=== PATIENT | male | born 1940 | race Caucasian/White ===

== ENCOUNTER 2018-01-13 08:40 | Inpatient (IN) | payer OTHER, SELFPAY ==
[2017-12-30 09:54] VITALS: BMI 23.9
--- NOTE | 2018-01-03 14:14 | CM.SWNOTE ---
Call from Dung Wright P # [phone]. Requesting info about pt's DC date (?). According to Registration notes; pt had a dummy date for surgery 12/31, actually date for knee surgery w/Dr De Leon is 01/13. Reg note indicates [facility] admissions already updated another member from [facility]Joyce Razo updated and auth in place starting 01/13. This STAFF RESPIRATORY THERAPIST unable to document in CollNotes in Registration. CM Personal Care Worker Reyna Huntley aware and email sent to admit change group. JW
[2018-01-13] VITALS (13 sets, daily range): BP systolic 85–175; BP diastolic 45–92; PULSE 54–66; RESP 11–18; TEMP 35.8–37.2; O2SAT 93–100; BMI 23.5
--- NOTE | 2018-01-13 | DI.RAD.S_ITS ---
PROCEDURE: XR KNEE RT 1TO2V INDICATIONS: KNEE TECHNIQUE: 2 view(s) of the knee acquired. COMPARISON: None. FINDINGS: Bones: Patient is status post knee joint arthroplasty. Hardware components are in expected positions. Visualized bony structures are intact. Soft tissues: Overlying postoperative changes are noted. IMPRESSION: Status post right total knee arthroplasty. Dictated by: Odalys Armas M.D. on 01/13/2018 at 13:39 Approved by: Odalys Armas M.D. on 01/13/2018 at 13:39
[2018-01-13] MEDS: LACTATED RINGERS 1,000 ML 42 ML IV ×2 (09:47→12:12)
[2018-01-13] MEDS: ACETAMINOPHEN 325 MG TABLET 975 MG PO ×2 (09:47→21:52)
[2018-01-13] MEDS: PREGABALIN 75 MG CAPSULE PO (09:48)
[2018-01-13] MEDS: CELECOXIB 200 MG CAPSULE PO (09:48)
[2018-01-13] MEDS: MIDAZOLAM 2 MG/2 ML VIAL IV (10:26)
[2018-01-13] MEDS: fentaNYL 100 MCG/2 ML INJ IV (10:26)
--- NOTE | 2018-01-13 10:46 | SUR.PREOP ---
50 mcg fentanyl iv verbal order dr leonardo
--- NOTE | 2018-01-13 10:49 | SUR.PREOP ---
Block start time []1033 . Monitoring initiated and maintained throughout procedure. Oxygen and medications given per anesthesiologist instructions. Patient remained stable throughout procedure, no adverse reactions noted. Block end time 1040 [].
[2018-01-13] MEDS: CEFAZOLIN 2 GM/100 ML FROZ.PIGGY IV ×2 (11:02→18:35)
--- NOTE | 2018-01-13 11:05 | PM.PREOP ---
Pre-operative Note Interval Note Pre-op Check: Yes History & Physical Reviewed by Physician and Yes Exam Performed Changes: No
--- NOTE | 2018-01-13 11:31 | SUR.OPER ---
Supine on padded OR bed. Pillow under head, arms secured on padded armboards <90 degree abduction. Safety belt across torso. Non-operative leg secured with tape over blanket over lower leg. Operative leg secured in DeMayo/Pierre positioner. Foam padded brace at thigh of operative leg.
[2018-01-13] MEDS: BUPIVACAINE 0.25% W/ EPI VIAL 50 ML INJ (11:37)
[2018-01-13] MEDS: TRANEXAMIC ACID 1,000 MG VIAL 1000 MG INJ ×2 (11:37→12:17)
[2018-01-13] MEDS: BUPIVACAINE LIPOSOME 266 MG/20 ML VIAL INJ (11:38)
[2018-01-13] MEDS: MORPHINE 4 MG/ML INJ INJ (11:43)
--- NOTE | 2018-01-13 12:45 | P.OP_ITS ---
Operative Date/Time/Diagnoses Date of procedure: 01/13/18 Time of procedure: 12:30 Post-op diagnosis: same Procedure & Clinicians Procedure: Right total knee replacement Same procedure as scheduled: Yes Indications: The patient has had progressively worsening right knee pain with radiographic changes consistent with arthritis. Non-operative management has failed and the patient has requested total knee replacement. The risks, benefits and alternatives to surgery were discussed with the patient prior to proceeding. Risks discussed included, but were not limited to, failure to relieve pain, stiffness, infection, nerve damage, deep venous thrombosis, pulmonary embolism, stroke, coma, heart attack, permanent paralysis and , as well as the potential need for eventual revision of the prosthetic. Surgeon: Paulo De Leon Automotive Technician Instructor: Norma Love Click Yes if Unassisted: No Anesthesia Type: Spinal, Sedation, Peripheral nerve block and Local Operative Notes Findings: Severe medial and moderate patellofemoral osteoarthritis. The patient had eroded his medial tibial and femoral bone. Closure Type: primary Specimen(s): none sent Implants & Drains: Implants used in this procedure were manufactured by the [employer] and [employer] and included the BCS II Journey total knee replacement with a size 8 right cobalt chromium femur, a size 8 right non porous tibial base plate, a 10 mm crosslinked polyethylene BCS II tibial insert and a 38 mm oval Maria Fernanda II patella. Applied: implant(s) Estimated Blood Loss (mL): 25 Blood products transfused: none Tourniquet time (min): 53 Procedure in detail: The patient was seen in the pre-operative area, where the patient identified the right knee as the operative site and this was marked with my initials. The patient received pre-operative antibiotics, and was taken to the operating room and placed on the operative table in the supine position. After satisfactory anesthesia, a java jsf developer out was performed. The right leg was encircled with a tourniquet about the proximal thigh, and the leg was prepared from the toes to the tourniquet with ChloroPrep in the usual fashion and draped through sterile drapes. The leg was elevated and exsanguinated with Eschmark bandage and the tourniquet inflated to 250 mmHg pressure. The knee was approached through an approximately 18 cm incision centered over the patella and carried into the knee through a medial parapatellar arthrotomy. The anterior osteophytes and soft tissues were removed. The rotational landmarks of Hamilton's line and the transepicondylar axis were marked on the femur with electrocautery, and intramedullary guide holes for the femur and tibia were created. The distal femoral cut was made in 6 degrees of valgus using the intramedullary guide at the primary cut setting. The proximal tibial cut was then made using the intramedullary guide, taking 9 mm of bone off the less involved side. The extension gap was checked and the rotation of the femoral component confirmed with the gap balancing system. The anterior, posterior and chamfer cuts were then made. The posterior osteophytes and soft tissues were then removed. The posterior capsule was injected with part of a mixture of 50 ml 0.25% Marcaine mixed with 20 ml Exparel and 4 mg of morphine for post-operative pain control. The remainder of this mixture was injected into the capsule and subcutaneous tissues during cement curing. The tibia was prepared with the rotation set by an extra medullary guide. Trial tibial and femoral components were then placed and the intercondylar notch cut through the femoral trial. Range of motion was 0-135 degrees, with good stability throughout the range. The patella was then cut to accommodate the patellar prosthetic. There was no need for a lateral release. The trials were then removed, and the femoral hole plugged with a bone plug. The bone was prepared with pulsatile lavage, and dried with a sponge. Cement was applied and the final prosthetics placed. Excess cement was removed during and after cement curing. After confirming there was no extruded cement posteriorly, the final tibial insert was placed. The knee was copiously irrigated and the tourniquet deflated. Hemostasis was obtained. The capsule was closed with interrupted # 2 polyester suture. The subcutaneous layer was closed with 3-0 Vicryl, and the skin with a running 3-0 V-Lock suture and SteriStrips. An Aquacel Ag dressing was applied and the patient was taken to recovery having tolerated the procedure well. Complications: none Condition: stable Disposition: PACU Plan for aftercare: The patient will be maintained on a standard total knee replacement protocol with weight bearing as tolerated. The patient will receive aspirin and sequential compression devices for DVT prophylaxis. The patient will be discharged home when safe for the home environment.
[2018-01-13] MEDS: fentaNYL 100 MCG/2 ML INJ 50 MCG IV ×2 (13:01→13:08)
--- NOTE | 2018-01-13 13:13 | SUR.PHASEI ---
Report called to MELINA Brice.
--- NOTE | 2018-01-13 13:34 | SUR.PHASEI ---
Pt transferred to the floor, Report to [employer]. VS stable. IV saline locked. Bed alarm on due to pt's impulsiveness. Alanisg cdi. Pt moving RLE independently.
[2018-01-13] MEDS: OXYCODONE IR 5 MG TABLET PO ×5 (13:45→23:37)
[2018-01-13] MEDS: LACTATED RINGERS 1,000 ML 125 ML IV ×2 (14:16→23:37)
--- NOTE | 2018-01-13 15:26 | PC.ADMIT ---
Admission Note: Pt arrived to 224 at 1300 from PACU. Very restless and moving right knee constantly in bed, reporting it just aches. Medicated wtih oxycodone after pt took in crackers and water. Denies nausea. CMS intact to BLEs. BRE wrap C/D/I to right knee. Orietned to room and to bed/tv/call light controls. Impulsive, does not call before getting out of bed. Bed alarm is on. Belongings at bedside. The patient,Prabhjot Crow,77 y/o, was given written information regarding hospital policies, unit procedures and contact persons. Patient's smoking status: Current every day smoker. Vital Signs - 8 hr 01/13/18 09:36 01/13/18 12:42 01/13/18 12:45 Temperature 97.3 F L 99.0 F Pulse Rate 55 L 66 66 Respiratory Rate 16 15 Blood Pressure 153/79 H 87/47 L 85/45 L Pulse Oximetry 100 96 01/13/18 12:47 01/13/18 12:54 01/13/18 12:57 Temperature Pulse Rate 66 63 62 Respiratory Rate 17 11 L 16 Blood Pressure 94/52 L 96/57 L 103/53 L Pulse Oximetry 96 96 96 01/13/18 13:13 01/13/18 13:31 01/13/18 14:23 Temperature 97.6 F 97.1 F L 96.9 F L Pulse Rate 56 L 57 L 59 L Respiratory Rate 15 18 18 Blood Pressure 125/70 H 143/65 H 147/75 H Pulse Oximetry 94 95 99 01/13/18 14:38 Temperature 96.5 F L Pulse Rate 54 L Respiratory Rate 16 Blood Pressure 175/91 H Pulse Oximetry 99
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
[2018-01-13] MEDS: DOCUSATE 100 MG CAPSULE PO (21:53)
[2018-01-13] MEDS: ASPIRIN EC 81 MG TABLET PO (21:53)
[2018-01-14] MEDS: CEFAZOLIN 2 GM/100 ML FROZ.PIGGY IV (02:45)
[2018-01-14 02:51] VITALS: BP 149/80; PULSE 67; RESP 18; TEMP 36.8; O2SAT 96
--- NOTE | 2018-01-14 03:41 | PC.NURSE ---
Warehouse Clerk- Pt OOB to BR X2 to void qs. Ambulated with SBA using walker, slow movement. Instructed pt on pain management and post op knee precautions. Oxycodone po prn given at 2340 for 3/10 aching to top of right knee. Effective in pain management. Ice on/off throughout shift and pt states helps. PPP, CMS+, right knee aquacel AG dressing CDI and covered with ralph wrap. IVF infusing well to left hand PIV. No other voiced concerns.
[2018-01-14 05:09] LABS: Hematocrit 38.9 % (41-53); Hemoglobin 13.1 g/dL (13.5-17.5)
[2018-01-14] MEDS: OXYCODONE IR 5 MG TABLET PO ×5 (05:47→20:57)
[2018-01-14 07:30] VITALS: BP 156/77; PULSE 66; RESP 15; TEMP 36.8; O2SAT 95
--- NOTE | 2018-01-14 07:49 | PM.DS.1 ---
History of Present Illness Date Patient Seen: 01/14/18 Time Patient Seen: 07:40 Chief complaint: [place] [id number] Narrative: History of present illness and physical exam is contained in the chart in a previously completed note. Please refer to that note for this information. Discharge Providers Date of admission: 01/13/18 08:40 Consults: 01/13/18 13:28 Consult to Discharge Planning Routine Comment: Consult to Physical Therapy Evaluate & Treat Comment: Physician Instructions: postop TKA protocol 01/13/18 14:07 Consult to Respiratory Therapy Evaluate & Treat Comment: Physician Instructions: Evaluate and treat Discharge provider: Paulo De Leon MD Discharge Date: 01/14/18 Summary Discharge Diagnosis: 1. Right knee osteoarthritis 2. Mild post hemorrhagic anemia Hospital Course: The patient was admitted to the hospital and taken directly to the operating room on January 13, 2018. He underwent a right total knee replacement without complications. He made good initial progress with physical therapy however was somewhat impulsive. He has had reasonably good pain control overall and at the time of this dictation the plan is for a ventral discharge today after additional physical therapy. Status at Discharge Cognitive/behavioral status at discharge: Baseline Functional status at discharge: uses cane/walker Overall status at discharge: patient is progressing back to baseline Time Spent with Patient Less than 30 minutes Exam Vital Signs (past 8 hours): - 01/14/18 02:51 Temperature 98.3 F Pulse Rate 67 Respiratory Rate 18 Blood Pressure 149/80 H Pulse Oximetry 96 Oxygen Delivery Method Room Air Oxygen Flow Rate 0 Narrative Exam Narrative: On physical examination the right lower extremity wound is dressed with no drainage on the bandage. Calf is soft. Light touch and motion are intact in the right lower extremity. Objective Labs Result Diagrams: 01/14/18 04:57 Labs: Laboratory Results - last 24 hr 01/14/18 04:57 Hgb 13.1 L Hct 38.9 L Radiographs reveal an appropriately positioned total knee prosthesis. Discharge Plan Discharge Plan Patient Disposition: Home, Self-Care Discharge Med Rec/Prescriptions Prescriptions: New acetaminophen 325 mg Tablet 975 mg PO TID 30 Days Qty: 270 RF: 0 aspirin 81 mg Tablet,Delayed Release (Dr/Ec) 81 mg PO BID 42 Days Qty: 84 RF: 0 ibuprofen 600 mg Tablet 600 mg PO Q6HR PRN (Reason: As Needed For Fever/Mild Pain) 30 Days RF: 0 oxycodone 5 mg Tablet 5 mg PO Q3HR PRN (Reason: Pain, Moderate (4-6)) Qty: 60 RF: 0 Continue vitamin B complex Tablet 1 tab PO DAILY RF: 0 hydrochlorothiazide 25 mg Tablet 25 mg PO DAILY RF: 0 zinc 50 mg Tablet 50 mg PO DAILY RF: 0 Follow up/Referrals: Paulo De Leon MD [Physician] - 3-5 Days Provider Discharge Instructions Diet: Diet as Tolerated Activity: May walk as tolerated on right leg. It is best to be up 10 minutes an hour every hour while awake rather than stay up for 2 hours and then rest 22. Cold/Heat Therapy: Ice through bandage as needed. If ice touches skin, remove it after 15 minutes. Wound Care Report to your healthcare provider any signs of infection, such as:: chills, fever, night sweats, increased pain and unusual drainage Dressing: You may remove the BRE wrap on , January 16 and shower with the deeper dressing in place. Other wound treatment: Contact the office if the central strip of the deeper dressing is saturated with blood or water. Discharge Data Attending Provider: Paulo De Leon Admit Date/Time: 01/13/18 08:40 Quality VTE Deep Vein Thrombosis/Pulmonary Embolism Present on Admission: No
[2018-01-14] MEDS: hydroCHLOROthiazide 25 MG TABLET PO (08:17)
[2018-01-14] MEDS: ACETAMINOPHEN 325 MG TABLET 975 MG PO ×3 (08:18→20:45)
[2018-01-14] MEDS: DOCUSATE 100 MG CAPSULE PO ×2 (08:18→20:45)
[2018-01-14] MEDS: ASPIRIN EC 81 MG TABLET PO ×2 (08:19→20:57)
--- NOTE | 2018-01-14 12:10 | PT.IPTN ---
Current Diagnoses Unilateral primary osteoarthritis, right knee (01/13/18) Surgery Performed Operation Date: 01/13/18 10:45 Actual Procedures p Total Knee Arthroplasty(Right) - Paulo De Leon MD Physical Therapy Treatment Note M2 PT-IP Current Condition Start: 01/13/18 16:14 Freq: NEEDED Status: Active Protocol: Document 01/13/18 15:34 MDD (Rec: 01/13/18 16:24 MDD [id number]) Physical Therapy Current Condition Current Condition Evaluation Date 01/13/18 Treatment Diagnosis s/p R TKA Onset Date 01/13/18 Weight Bearing Status Weight Bearing Status Weight Bear as Tolerated M3 PT-IP Subjective Start: 01/13/18 16:14 Freq: NEEDED Status: Active Protocol: Document 01/14/18 12:10 MDD (Rec: 01/14/18 12:57 MDD [id number]) Subjective Physical Therapy Visit Type Type Treatment Note Visit Start Time 11:39 Visit Stop Time 12:10 Total Visit Minutes 31 Number of FISHING GAME WARDEN Visits 0 Physical Therapy Visit Comments Patient Comments Pt agreeable to participate with therapy this day. Does report having severe pain in R knee when he moves. States he would like to stay in the hospital one more night. Therapy Pain Assessment Pain When Pain Assessed During Mobility Pain Present Pain Present Pain Reported Location Right knee Intensity 10 Scale Used Numeric (1 - 10) Description Aching Pain Behaviors Calling Out Guarding Holding Area Moaning Wincing Pain Management Techniques Timing of Activity with Medications M4 PT-IP Mobility and Gait Start: 01/13/18 16:14 Freq: NEEDED Status: Active Protocol: Document 01/13/18 15:34 MDD (Rec: 01/13/18 16:24 MDD [id number]) PT-Bed Mobility Assessment Rolling Level of Assist Independent Supine to Sit Supine to Sit Independent Sit to Supine Sit to Supine Independent Scooting Scooting to Edge of Bed Independent Scooting Up and Down in Bed Independent PT-Transfer Assessment Sit to and From Stand Sit to and from Stand Standby Assistance Equipment Transfer Assistive Device Gait Belt Front Wheeled Walker Gait Assessment Gait Gait Assistance Required: Standby Assistance Distance (Feet) (feet) 50 Assistive Devices Assistive Device Gait Belt Front Wheeled Walker Gait Deviations General Gait Pattern Antalgic Step-to Gait Wide Based Gait Comments Gait Comments Pt very impulsive with movements, at one point picks up the walker and carries it 5 feet. PT-Balance Assessment Sitting Balance and Reactions Static Sitting Balance Ability Normal Dynamic Sitting Balance Ability Normal Standing Balance and Reactions Static Standing Balance Ability Good Dynamic Standing Balance Ability Good M5 PT-IP Objective Assessments Start: 01/13/18 16:14 Freq: NEEDED Status: Active Protocol: Document 01/13/18 15:34 MDD (Rec: 01/13/18 16:24 MDD [id number]) Orientation Orientation/Cognition Level of Alertness Alert Orientation Name Age Birthday Month Date Year Day of Week Place Situation Language Function Ability No Deficits Noted Safety Awareness Decreased Safety Awareness Memory Description No Deficits Noted Comments Pt impulsive throughout session, often swearing due to pain. Stood up without assist. Bed alarm left on. Gross Range of Motion Lower Extremity ROM Assessment Within Functional Limits Strength Lower Extremity Strength Assessment Within Functional Limits Coordination Assessment Gross Coordination Gross Coordination WNL Sensation Assessment Sensation Gross Sensation WNL M6 PT-IP Treatment Start: 01/13/18 16:14 Freq: NEEDED Status: Active Protocol: Document 01/14/18 12:10 MDD (Rec: 01/14/18 12:57 [facility] [id number]) Physical Therapy Treatment Education Education Provided Weight Bearing Status Safety Other Treatments Other Treatment Performed Pt required min A to move R LE during supine <> sit transfers today due to pain. Ambulated 10 feet and then an additional 57 feet with CGA and FWW with increasingly antalgic pattern. Pt was able to ascend/descend 3 steps using B handrails and CGA, but appeared unsteady. M7 PT-IP Assessment and Plan Start: 01/13/18 16:14 Freq: NEEDED Status: Active Protocol: Document 01/14/18 12:10 MDD (Rec: 01/14/18 12:57 [facility] [id number]) PT Summary Assessment and Plan Potential Rehabilitation Potential Good Status of Condition at Evaluation Stable Summary Impairments Pain ROM Bed Mobility Gait Progress Towards Goals Slow Progress due to Pain Assessment Summary Pt demonstrates greater impairments in bed mobility and gait this day due to high complaints of pain. Nursing had pre-medicated him well before treatment session. Should continue to benefit from additional guidance with PT and caregiver training. Pt reports he can have his sister come tomorrow, but doesn't think she can make it this afternoon. Goals Bed Mobility Goal Independent Transfer Goal Independent Gait Goal Independent Gait Distance 150 with FWW Other Goals Ascend/descend 2 steps with B hand rails. Days to Meet Goals 2 Frequency of Treatment Frequency Of Treatment Twice a Day Treatment Plan Physical Therapy Treatment Plan Gait Training Other Recommendations and Next Treatment Stair training, review HEP, Focus caregiver training Recommendations To Nursing Amount of Assist Needed Standby Assistance Discharge Recommendations PT Discharge Recommendations Home with Assistance
[2018-01-14] MEDS: IBUPROFEN 600 MG TABLET PO (12:28)
[2018-01-14 12:59] VITALS: BP 160/83; PULSE 62; RESP 16; TEMP 36.3; O2SAT 97
--- NOTE | 2018-01-14 13:51 | PC.NURSE ---
patient reports that he doesn't feel ready to go home today. Patient states that Dr. De Leon told him he could stay another day if he wanted. Nubia Alvares notified that patient feels he is not ready to go related to pain management and mobility needs. Order to hold discharge received. Will continue to follow. Patient medicated and assisted to get comfortable in bed, and requests to sleep for awhile. call light withinr each
[2018-01-14 15:52] VITALS: BP 150/76; PULSE 60; RESP 17; O2SAT 93
[2018-01-14 19:30] VITALS: BP 140/68; PULSE 62; RESP 18; TEMP 36.3; O2SAT 97
[2018-01-14] MEDS: SODIUM CHLORIDE 0.9% FLUSH 10 ML IV (20:57)
--- NOTE | 2018-01-14 21:55 | PC.NURSE ---
SHIFT NOTE Ox3 although forgetful at times. pt found getting OOB without assist, pt educated on safety which he was initially reluctant to comply with. pt denies any pain but still requesting PRN oxycodone. frequent visual checks. bed alarm fro safety. call light within reach.
[2018-01-15 00:10] VITALS: BP 133/64; PULSE 62; RESP 16; TEMP 36.7; O2SAT 95
[2018-01-15 05:52] VITALS: BP 162/68; PULSE 67; RESP 16; TEMP 36.5; O2SAT 98
[2018-01-15] MEDS: OXYCODONE IR 5 MG TABLET PO ×2 (06:00→10:46)
--- NOTE | 2018-01-15 07:38 | PC.NURSE ---
Assumed care of pt from outgoing shift. Pt asleep at this time. Pt bed alarm on. side rails upx3 belongings and call light within reach. will continue to monitor. 0130- Pt awake, denied pain, denied need for pain pill. assessment completed and charted. pt compliant. will continue to monitor. 0600- pt called complaining of pain, pain med given per AUG.
--- NOTE | 2018-01-15 07:43 | PM.PNPO.1 ---
Subjective Date Patient Seen: 01/15/18 Time Patient Seen: 07:44 Interval history: Patient notes his pain is moderate. Denies fever chills. No nausea vomiting. Patient stayed overnight due to patient being uncomfortable go home. Patient felt like he needed more physical therapy prior to discharge. Patient does have assistance at home. Patient was able to ambulate yesterday evening and actually was able do some stairs with assistance. Exam Vital Signs (past 8 hours): - 01/15/18 00:10 01/15/18 05:52 Temperature 98.1 F 97.7 F Pulse Rate 62 67 Respiratory Rate 16 16 Blood Pressure 133/64 H 162/68 H Pulse Oximetry 95 98 Oxygen Delivery Method Room Air Oxygen Flow Rate 0 Narrative Exam Narrative: 77-year-old male resting comfortably in bed in no apparent distress. Right knee dressing is clean, dry and intact. Calf is soft and nontender. Right lower extremity is warm and dry. Sensation grossly intact to light touch. Motor functions intact distal right lower extremity. Objective Labs Result Diagrams: 01/14/18 04:57 Assessment & Plan Post-op Postoperative Procedures Operation Date: 01/13/18 10:45 Actual Procedures Side Surgeon p Total Knee Arthroplasty Right Paulo De Leon MD Patient progressing as expected status post right total knee arthroplasty. Patient will continue to follow [facility] protocol. Oxycodone prescription provided. He will be on aspirin 81 mg b.i.d.. Tylenol 1000 mg t.i.d.. Anti-inflammatories as prescribed. He will start outpatient physical therapy. Follow-up scheduled [facility] in 5-7 days. Time Spent With Patient less than 15 minutes Quality VTE Deep Vein Thrombosis/Pulmonary Embolism Present on Admission: No
--- NOTE | 2018-01-15 07:47 | P.PN_ITS ---
Subjective Date Patient Seen: 01/15/18 Time Patient Seen: 07:44 Interval history: Patient notes his pain is moderate. Denies fever chills. No nausea vomiting. Patient stayed overnight due to patient being uncomfortable go home. Patient felt like he needed more physical therapy prior to discharge. Patient does have assistance at home. Patient was able to ambulate yesterday evening and actually was able do some stairs with assistance. Exam Vital Signs (past 8 hours): - 01/15/18 00:10 01/15/18 05:52 Temperature 98.1 F 97.7 F Pulse Rate 62 67 Respiratory Rate 16 16 Blood Pressure 133/64 H 162/68 H Pulse Oximetry 95 98 Oxygen Delivery Method Room Air Oxygen Flow Rate 0 Narrative Exam Narrative: 77-year-old male resting comfortably in bed in no apparent distress. Right knee dressing is clean, dry and intact. Calf is soft and nontender. Right lower extremity is warm and dry. Sensation grossly intact to light touch. Motor functions intact distal right lower extremity. Objective Labs Result Diagrams: 01/14/18 04:57 Assessment & Plan Post-op Postoperative Procedures Operation Date: 01/13/18 10:45 Actual Procedures Side Surgeon p Total Knee Arthroplasty Right Paulo De Leon MD Patient progressing as expected status post right total knee arthroplasty. Patient will continue to follow [facility] protocol. Oxycodone prescription provided. He will be on aspirin 81 mg b.i.d.. Tylenol 1000 mg t.i.d.. Anti- inflammatories as prescribed. He will start outpatient physical therapy. Follow-up scheduled [facility] in 5-7 days. Time Spent With Patient less than 15 minutes Quality VTE Deep Vein Thrombosis/Pulmonary Embolism Present on Admission: No
[2018-01-15 07:59] VITALS: BP 153/80; PULSE 70; RESP 16; TEMP 37.4; O2SAT 95
[2018-01-15] MEDS: ACETAMINOPHEN 325 MG TABLET 975 MG PO (08:07)
--- NOTE | 2018-01-15 10:23 | PC.NURSE ---
Am medications late, as they were not sent by pharmacy. Pharmacy has been notified and waiting for them at this time.
[2018-01-15] MEDS: ASPIRIN EC 81 MG TABLET PO (10:41)
[2018-01-15] MEDS: DOCUSATE 100 MG CAPSULE PO (10:41)
[2018-01-15] MEDS: hydroCHLOROthiazide 25 MG TABLET PO (10:42)
[2018-01-15] MEDS: IBUPROFEN 600 MG TABLET PO (10:42)
--- NOTE | 2018-01-15 10:47 | PT.IPTN ---
Current Diagnoses Unilateral primary osteoarthritis, right knee (01/13/18) Surgery Performed Operation Date: 01/13/18 10:45 Actual Procedures p Total Knee Arthroplasty(Right) - Paulo De Leon MD Physical Therapy Treatment Note M2 PT-IP Current Condition Start: 01/13/18 16:14 Freq: NEEDED Status: Active Protocol: Document 01/13/18 15:34 MDD (Rec: 01/13/18 16:24 MDD [id number]) Physical Therapy Current Condition Current Condition Evaluation Date 01/13/18 Treatment Diagnosis s/p R TKA Onset Date 01/13/18 Weight Bearing Status Weight Bearing Status Weight Bear as Tolerated M3 PT-IP Subjective Start: 01/13/18 16:14 Freq: NEEDED Status: Active Protocol: Document 01/15/18 10:35 GGD (Rec: 01/15/18 10:42 GGD [email or web address]) Subjective Physical Therapy Visit Type Type Treatment Note Visit Start Time 10:05 Visit Stop Time 10:35 Total Visit Minutes 35 Number of JAVA DEVELOPER CONSULTANT Visits 1 Physical Therapy Visit Comments Patient Comments Pt states he would like a shower before D/C Therapy Pain Assessment Pain When Pain Assessed At Rest Pain Present Pain Present Pain Reported Location Right knee Intensity 4 Scale Used Numeric (1 - 10) M4 PT-IP Mobility and Gait Start: 01/13/18 16:14 Freq: NEEDED Status: Active Protocol: Document 01/15/18 10:35 GGD (Rec: 01/15/18 10:47 GGD [id number]) PT-Bed Mobility Assessment Supine to Sit Supine to Sit Contact Guard Assistance Head of Bed Elevated Bedrails Scooting Scooting to Edge of Bed Standby Assistance PT-Transfer Assessment Sit to and From Stand Sit to and from Stand Contact Guard Assistance Use of Upper Extremities Equipment Transfer Assistive Device Gait Belt Front Wheeled Walker Transfers Transfer Destination Toilet Transfer Ability Level of Assist Contact Guard Assistance Use of Upper Extremities Gait Assessment Gait Gait Assistance Required: Contact Guard Assist Assistive Devices Assistive Device Gait Belt Front Wheeled Walker Gait Deviations General Gait Pattern Antalgic Decreased Stride Length Decreased Feet Clearance Flexed Trunk Step-to Gait Factors Limiting Gait Function Factors Limiting Gait Function Decreased Strength Limited Range of Motion Pain Poor Balance Poor Safety Awareness M5 PT-IP Objective Assessments Start: 01/13/18 16:14 Freq: NEEDED Status: Active Protocol: Document 01/13/18 15:34 MDD (Rec: 07/30/18 16:24 MDD [id number]) Orientation Orientation/Cognition Level of Alertness Alert Orientation Name Age Birthday Month Date Year Day of Week Place Situation Language Function Ability No Deficits Noted Safety Awareness Decreased Safety Awareness Memory Description No Deficits Noted Comments Pt impulsive throughout session, often swearing due to pain. Stood up without assist. Bed alarm left on. Gross Range of Motion Lower Extremity ROM Assessment Within Functional Limits Strength Lower Extremity Strength Assessment Within Functional Limits Coordination Assessment Gross Coordination Gross Coordination WNL Sensation Assessment Sensation Gross Sensation WNL M6 PT-IP Treatment Start: 01/13/18 16:14 Freq: NEEDED Status: Active Protocol: Document 01/15/18 10:35 GGD (Rec: 01/15/18 10:42 GGD [email or web address]) Physical Therapy Treatment Exercises Exercises Ankle Pumps Quad Sets Heel Slides Education Education Provided Safety M7 PT-IP Assessment and Plan Start: 01/13/18 16:14 Freq: NEEDED Status: Active Protocol: Document 01/15/18 10:35 GGD (Rec: 01/15/18 10:42 GGD [id number]) PT Summary Assessment and Plan Summary Assessment Summary Pt need to use L Le for bed mobility and HOB elevated. He does sleep in a recliner at home. He need cues for safety and use for FWW. He had increase in pain with weight bearing and slow step to gait pattern. Frequency of Treatment Frequency Of Treatment Twice a Day Treatment Plan Physical Therapy Treatment Plan Gait Training Other Recommendations and Next Treatment Stair training, review HEP, Focus caregiver training Recommendations To Nursing Amount of Assist Needed 1 Person Assist Discharge Recommendations PT Discharge Recommendations Home with Assistance Outpatient PT
[2018-01-15] MEDS: SODIUM CHLORIDE 0.9% FLUSH 10 ML IV (10:50)
[2018-01-15 11:11] VITALS: BP 122/72; PULSE 72; RESP 16; TEMP 36.6; O2SAT 98
--- NOTE | 2018-01-15 14:41 | PC.NURSE ---
discharge instructions and home care handout reviewed [facility] patient. patient states understanding and has no further questions at this time. IV dc'd intact. Aquacel dressing in place, cdi. Patient given prescription for pain medication as ordered to fill at pharmacy of choice. Patient will ensure follow up as scheduled in 3-5 days. Patient escorted out via wheelchiar with all belongings to be discharged to home with his daughter.
== END 2018-01-15 14:43 | disposition home or self-care (01) | DRG 470 ==
PROVIDERS: Admitting Provider Orthopaedic Surgery; Visit Provider Orthopaedic Surgery
PROC: 0SRC0JZ Replacement of Right Knee Joint with Synthetic Substitute, Open Approach (ICD-10-PCS; CPT 27447; principal; 2018-01-13 10:45)
DX: M17.11 Unilateral primary osteoarthritis, right knee (principal); I10 Essential (primary) hypertension; N40.0 Benign prostatic hyperplasia without lower urinary tract symptoms; M11.20 Other chondrocalcinosis, unspecified site
CPT/HCPCS: 36415; 73560; 85014; 85018; 97116; 97161; 97530; 99406; C1776; C9290; J0690; J2250; J2270; J2704; J3010